=== PATIENT | female | born 1940 | race Caucasian/White ===

== ENCOUNTER → 2021-11-01 | Outpatient (CLI) | payer MEDICARE | LOC: HEART 5 07:52 | DX: R55 Syncope and collapse (principal); I65.23 Occlusion and stenosis of bilateral carotid arteries | CPT/HCPCS: 93880 ==

== ENCOUNTER → 2021-11-12 | Outpatient (CLI) | payer MEDICARE | LOC: HEART 5 09:52 | DX: R55 Syncope and collapse (principal); I27.20 Pulmonary hypertension, unspecified; I08.8 Other rheumatic multiple valve diseases | CPT/HCPCS: 93306 ==

== ENCOUNTER → 2022-07-09 | Outpatient (CLI) | payer MEDICARE | LOC: LAB 11:27 | DX: U07.1 COVID-19 (principal) | CPT/HCPCS: U0002 ==

== ENCOUNTER 2022-07-15 03:40 | Emergency (ER) | payer MEDICARE ==
[2022-07-15 05:29] LABS: HEMOGLOBIN 12.4 gm/dl (12.3-15.3); RED BLOOD COUNT 3.91 M/UL (4.00-5.10); WHITE BLOOD COUNT 7.4 K/UL (4.5-11.0)
[2022-07-15 05:58] LABS: BUN/CREATININE RATIO 15 (0-10)
[2022-07-15] MEDS ORDERED: CEFUROXIME500 MG PO (11:51)
== END 2022-07-15 12:21 | disposition home or self-care (01) ==
LOC: ER1 03:40
PROVIDERS: Physician Assistant
DX: U07.1 COVID-19 (principal); N39.0 Urinary tract infection, site not specified; Z90.710 Acquired absence of both cervix and uterus
CPT/HCPCS: 70450; 71045; 80053; 81001; 82550; 82553; 83880; 84484; 85025; 85610; 85730; 87077; 87086; 87186; 93005; 99285; J7040